=== PATIENT | male | born 1945 | race African-American/Black ===

== ENCOUNTER 2021-04-17 13:27 | Inpatient (IN) | payer MEDICARE, OTHER ==
[~2021-04-17] VITALS: Ht 180.3 cm; Wt 69.2 kg
[2021-04-17] MEDS ORDERED: IOHEXOL 350 MG/ML 75 ML VIAL ONE (13:58)
[2021-04-17 14:21] LABS: BASOPHILS % (AUTO) 1.4 % (0.0-2.0); EOSINOPHILS % (AUTO) 0.6 % (1.0-6.0); HEMATOCRIT 31.3 % (41-53); HEMOGLOBIN 10.1 g/dL (13.5-17.5); LYMPHOCYTES # (AUTO) 1.1 K/uL (1.0-4.8); LYMPHOCYTES % (AUTO) 20.2 % (22.0-44.0); MEAN CORPUSCULAR HEMOGLOBIN 31.7 pg (26.0-34.0); MEAN CORPUSCULAR HGB CONC 32.2 G/dL (31.0-37.0); MEAN CORPUSCULAR VOLUME 99 fL (80-100); MONOCYTES # (AUTO) 0.3 K/uL (0.1-1.0); MONOCYTES % (AUTO) 5.5 % (2.0-9.0); NEUTROPHILS # (AUTO) 3.8 K/uL (1.8-7.7); NEUTROPHILS % (AUTO) 72.3 % (40.0-70.0); PLATELET COUNT (AUTO) 437 K/uL (150-450); RED BLOOD CELL COUNT(AUTO) 3.17 MIL/uL (4.50-5.90)
[2021-04-17 14:22] LABS: INR 1.1 (0.9-1.1); PROTHROMBIN TIME 11.3 SEC (9.4-11.6)
[2021-04-17 14:23] LABS: CALCIUM, TOTAL 8.8 mg/dL (8.8-10.5); CREATININE 1.78 mg/dL (0.60-1.30); POTASSIUM 4.3 mmol/L (3.5-5.1)
[2021-04-17 14:29] LABS: ALBUMIN 2.8 g/dL (3.4-5.0); BILIRUBIN,TOTAL 0.3 mg/dL (0.1-1.0); TOTAL PROTEIN, SERUM 8.5 g/dL (6.4-8.2)
[2021-04-17 14:51] LABS: B-TYPE NATRIURETIC PEPTIDE 196 pg/mL (0-100)
[2021-04-17 14:57] LABS: COVID AG,FIA SOURCE NASOPHARYNGEAL
[2021-04-17] MEDS ORDERED: TICAGRELOR 90 MG TABLET PO ONE (15:15)
[2021-04-17 15:27] LABS: APPEARANCE,URINE CLEAR (CLEAR); BILIRUBIN,URINE NEGATIVE (NEGATIVE); GLUCOSE, URINE (UA) NEGATIVE (NEGATIVE); KETONES,URINE NEGATIVE (NEGATIVE); LEUKOCYTE ESTERASE ,URINE NEGATIVE (NEGATIVE); NITRATE,URINE NEGATIVE (NEGATIVE); OCCULT BLOOD,URINE SMALL (NEGATIVE); PROTEIN,URINE TRACE (NEGATIVE); UROBILINOGEN,URINE 0.2 mg/dL (<=1.0)
[2021-04-17 15:42] LABS: AMPHET/METH SCREEN,URINE NEGATIVE (NEGATIVE); BARBITURATE SCREEN, URINE NEGATIVE (NEGATIVE); BENZODIAZEPINES SCREEN,URINE NEGATIVE (NEGATIVE); CANNABINOID SCREEN,URINE NEGATIVE (NEGATIVE); COCAINE SCREEN,URINE NEGATIVE (NEGATIVE); METHADONE SCREEN, URINE NEGATIVE (NEGATIVE); OPIATE SCREEN,URINE NEGATIVE (NEGATIVE)
[2021-04-17 15:43] LABS: PHENCYCLIDINE SCREEN,URINE NEGATIVE (NEGATIVE)
[2021-04-17 15:54] LABS: BACTERIA,URINE Rare /HPF (None Seen); SQUAMOUS EPITHELIAL CELL,UR Rare /LPF (None Seen)
[2021-04-17] MEDS ORDERED: ACETAMINOPHEN 325 MG TABLET PO PRN (16:45)
[2021-04-17] MEDS ORDERED: ONDANSETRON HCL 4 MG/2 ML VIAL IVP PRN (16:45)
[2021-04-17] MEDS ORDERED: 0.9% SODIUM CHLORIDE 10 ML SYRINGE IVP PRN (16:45)
[2021-04-17 18:10] VITALS: BP 143/72
[2021-04-17 19:53] VITALS: BP 141/73
[2021-04-17 23:30] VITALS: BP 159/77
[2021-04-18 04:10] VITALS: BP 158/83
[2021-04-18] MEDS ORDERED: ACETAMINOPHEN 325 MG TABLET PO PRN (05:45)
[2021-04-18] MEDS ORDERED: ALBUTEROL SULFATE 2.5 MG/0.5 ML NEB SOLUTION NEB PRN (05:45)
[2021-04-18] MEDS ORDERED: HYDROCODONE/ACETAMINOPHEN 5-325 MG TABLET PO PRN (05:45)
[2021-04-18] MEDS ORDERED: IPRATROPIUM BROMIDE 0.5 MG/2.5 ML NEB SOLUTION NEB PRN (05:45)
[2021-04-18] MEDS ORDERED: DEXTROSE 50%-WATER 25 GM/50 ML SYRINGE IVP PRN (05:45)
[2021-04-18] MEDS ORDERED: BISACODYL 10 MG RECTAL RECTAL SUPPOSITORY PR PRN (05:45)
[2021-04-18] MEDS ORDERED: ONDANSETRON HCL 4 MG/2 ML VIAL IVP PRN (05:45)
[2021-04-18] MEDS ORDERED: ZOLPIDEM TARTRATE 5 MG TABLET PO PRN (05:45)
[2021-04-18] MEDS ORDERED: ATOR10TA84 PO (05:46)
[2021-04-18] MEDS ORDERED: CHL25 PO (05:46)
[2021-04-18] MEDS ORDERED: GABA-1181 PO (05:46)
[2021-04-18] MEDS ORDERED: CINA30 PO (05:46)
[2021-04-18] MEDS ORDERED: [UNRECOGNIZED DRUG - CODE] SQ (05:46)
[2021-04-18] MEDS ORDERED: HYDR2TAB37 PO ×2 (05:48)
[2021-04-18] MEDS ORDERED: PRED-409 PO (05:49)
[2021-04-18] MEDS ORDERED: SERT-158 PO (05:50)
[2021-04-18] MEDS ORDERED: CARAL PO (05:51)
[2021-04-18] MEDS ORDERED: INSLAN SQ (05:52)
[2021-04-18] MEDS ORDERED: MULT-264 PO (05:54)
[2021-04-18] MEDS ORDERED: NIFE-64 PO (05:55)
[2021-04-18] MEDS ORDERED: MELA5TAB40 PO (05:55)
[2021-04-18] MEDS ORDERED: PANT-31 PO (05:56)
[2021-04-18] MEDS ORDERED: NYST100033 PO (05:57)
[2021-04-18] MEDS ORDERED: FOLI-130 PO (06:01)
[2021-04-18] MEDS ORDERED: DEXT30DR5 OU (06:03)
[2021-04-18] MEDS ORDERED: TAMS-13 PO (06:06)
[2021-04-18] MEDS ORDERED: TACR5CAP21 PO (06:06)
[2021-04-18 06:38] LABS: GLUCOMETER DEV NAME(LOC) 5N.3; GLUCOSE,POINT OF CARE 88 MG/DL (70-110)
[2021-04-18 07:19] LABS: EOSINOPHILS % (AUTO) 0.5 % (1.0-6.0); HEMATOCRIT 29.1 % (41-53); HEMOGLOBIN 9.3 g/dL (13.5-17.5); LYMPHOCYTES % (AUTO) 32.4 % (22.0-44.0); MEAN CORPUSCULAR HEMOGLOBIN 31.9 pg (26.0-34.0); MEAN CORPUSCULAR HGB CONC 32.1 G/dL (31.0-37.0); MEAN CORPUSCULAR VOLUME 100 fL (80-100); MONOCYTES # (AUTO) 0.4 K/uL (0.1-1.0); MONOCYTES % (AUTO) 6.8 % (2.0-9.0); NEUTROPHILS # (AUTO) 3.6 K/uL (1.8-7.7); NEUTROPHILS % (AUTO) 59.3 % (40.0-70.0); PLATELET COUNT (AUTO) 441 K/uL (150-450); RED BLOOD CELL COUNT(AUTO) 2.93 MIL/uL (4.50-5.90); RED CELL DISTRIBUTION WIDTH 19.2 % (11.5-14.5)
[2021-04-18 07:33] VITALS: BP 171/82
[2021-04-18 07:58] LABS: ALBUMIN 2.6 g/dL (3.4-5.0); BILIRUBIN,TOTAL 0.4 mg/dL (0.1-1.0); CALCIUM, TOTAL 8.6 mg/dL (8.8-10.5); CREATININE 1.88 mg/dL (0.60-1.30); POTASSIUM 4.5 mmol/L (3.5-5.1); THYROID STIMULATING HORMONE 2.05 uIU/mL (0.36-3.74)
[2021-04-18] MEDS ORDERED: HYDROmorphone HCL 2 MG TABLET PO PRN (08:15)
[2021-04-18] MEDS: HYDROmorphone HCL 2 MG TABLET PO SCH ×2 (08:15→20:15)
[2021-04-18] MEDS: INSULIN GLARGINE,HUM.REC.ANLOG 100 UNITS/ML SQ SCH (09:00)
[2021-04-18] MEDS: HEPARIN SODIUM,PORCINE 5,000 UNITS/ML VIAL SQ SCH ×2 (10:33→17:15)
[2021-04-18] MEDS: TACROLIMUS 5 MG CAPSULE PO SCH ×3 (10:34→22:15)
[2021-04-18] MEDS: NIFEdipine 60 MG ER TABLET PO SCH ×3 (10:34→22:16)
[2021-04-18] MEDS: SUCRALFATE 1 GM/10 ML SUSPENSION UDCUP PO SCH ×5 (10:34→22:15)
[2021-04-18] MEDS: CHLORTHALIDONE 25 MG TABLET PO SCH (10:34)
[2021-04-18] MEDS: PANTOPRAZOLE SODIUM 40 MG DR TABLET PO SCH ×3 (10:35→22:16)
[2021-04-18] MEDS: PredniSONE 5 MG TABLET PO SCH (10:35)
[2021-04-18] MEDS: NYSTATIN 500,000 UNITS/5 ML SUSPENSION UDCUP PO SCH ×5 (10:35→22:15)
[2021-04-18] MEDS: GABAPENTIN 300 MG CAPSULE PO SCH ×4 (10:36→22:15)
[2021-04-18] MEDS: SERTRALINE HCL 50 MG TABLET PO SCH (10:36)
[2021-04-18] MEDS: FOLIC ACID 1 MG TABLET PO SCH (10:36)
[2021-04-18] MEDS: MULTIVITAMINS, THERAPEUTIC TABLET PO SCH (10:37)
[2021-04-18] MEDS: DEXTRAN 70 0.1%/HYPROMELL 0.3% 0.9 ML OPHTHALMIC SOLUTION [PF] OU SCH ×4 (10:49→22:16)
[2021-04-18 11:07] VITALS: BP 165/83
[2021-04-18 16:25] VITALS: BP 130/71
[2021-04-18 16:39] LABS: GLUCOMETER DEV NAME(LOC) 5S.1; GLUCOSE,POINT OF CARE 74 MG/DL (70-110)
[2021-04-18 16:40] LABS: GLUCOMETER DEV NAME(LOC) 5S.1; GLUCOSE,POINT OF CARE 113 MG/DL (70-110)
[2021-04-18 17:14] LABS: GLUCOMETER DEV NAME(LOC) 5N.1C; GLUCOSE,POINT OF CARE 107 MG/DL (70-110)
[2021-04-18] MEDS: CINACALCET HCL 30 MG TABLET PO SCH (17:26)
[2021-04-18 19:22] VITALS: BP 145/80
[2021-04-18] MEDS: ATORVASTATIN CALCIUM 10 MG TABLET PO SCH ×2 (21:00→22:16)
[2021-04-18] MEDS: MELATONIN 5 MG TABLET PO SCH ×2 (21:00→22:15)
[2021-04-18] MEDS: TAMSULOSIN HCL 0.4 MG CAPSULE PO SCH ×2 (21:00→22:15)
[2021-04-18] MEDS: TICAGRELOR 90 MG TABLET PO SCH ×2 (21:15→22:15)
[2021-04-19] VITALS (7 sets, daily range): BP systolic 120–155; BP diastolic 69–81
[2021-04-19] MEDS: LORazepam 2 MG/ML VIAL IVP PRN ×2 (00:37→15:40)
[2021-04-19] MEDS: HEPARIN SODIUM,PORCINE 5,000 UNITS/ML VIAL SQ SCH ×2 (00:40→08:37)
[2021-04-19 06:42] LABS: BASOPHILS % (AUTO) 0.8 % (0.0-2.0); EOSINOPHILS % (AUTO) 1.1 % (1.0-6.0); HEMATOCRIT 28.3 % (41-53); HEMOGLOBIN 9.2 g/dL (13.5-17.5); LYMPHOCYTES # (AUTO) 1.1 K/uL (1.0-4.8); LYMPHOCYTES % (AUTO) 24.2 % (22.0-44.0); MEAN CORPUSCULAR HEMOGLOBIN 32.1 pg (26.0-34.0); MEAN CORPUSCULAR HGB CONC 32.6 G/dL (31.0-37.0); MEAN CORPUSCULAR VOLUME 98 fL (80-100); MONOCYTES # (AUTO) 0.4 K/uL (0.1-1.0); MONOCYTES % (AUTO) 7.8 % (2.0-9.0); NEUTROPHILS # (AUTO) 3.1 K/uL (1.8-7.7); NEUTROPHILS % (AUTO) 66.1 % (40.0-70.0); PLATELET COUNT (AUTO) 396 K/uL (150-450); RED BLOOD CELL COUNT(AUTO) 2.88 MIL/uL (4.50-5.90); RED CELL DISTRIBUTION WIDTH 18.9 % (11.5-14.5)
[2021-04-19 07:02] LABS: ALBUMIN 2.5 g/dL (3.4-5.0); BILIRUBIN,TOTAL 0.3 mg/dL (0.1-1.0); CALCIUM, TOTAL 8.9 mg/dL (8.8-10.5); CHOL/HDL RATIO 2.6 (4.2-7.3); CREATININE 1.77 mg/dL (0.60-1.30); MAGNESIUM 1.8 mg/dL (1.80-2.40); PHOSPHORUS 3.1 mg/dL (2.5-4.9); POTASSIUM 4.4 mmol/L (3.5-5.1); TOTAL PROTEIN, SERUM 7.8 g/dL (6.4-8.2)
[2021-04-19 07:56] LABS: GLUCOMETER DEV NAME(LOC) 5N.1C; GLUCOSE,POINT OF CARE 95 MG/DL (70-110)
[2021-04-19] MEDS: HYDROmorphone HCL 2 MG TABLET PO SCH (08:36)
[2021-04-19] MEDS: FOLIC ACID 1 MG TABLET PO SCH (08:38)
[2021-04-19] MEDS: CINACALCET HCL 30 MG TABLET PO SCH ×2 (08:38→18:00)
[2021-04-19] MEDS: PredniSONE 5 MG TABLET PO SCH (08:38)
[2021-04-19] MEDS: DEXTRAN 70 0.1%/HYPROMELL 0.3% 0.9 ML OPHTHALMIC SOLUTION [PF] OU SCH ×4 (08:38→20:52)
[2021-04-19] MEDS: TICAGRELOR 90 MG TABLET PO SCH ×2 (08:38→20:44)
[2021-04-19] MEDS: NIFEdipine 60 MG ER TABLET PO SCH ×2 (08:39→20:44)
[2021-04-19] MEDS: MULTIVITAMINS, THERAPEUTIC TABLET PO SCH (08:39)
[2021-04-19] MEDS: CHLORTHALIDONE 25 MG TABLET PO SCH (08:39)
[2021-04-19] MEDS: PANTOPRAZOLE SODIUM 40 MG DR TABLET PO SCH ×2 (08:39→20:45)
[2021-04-19] MEDS: SUCRALFATE 1 GM/10 ML SUSPENSION UDCUP PO SCH ×4 (08:40→20:48)
[2021-04-19] MEDS: GABAPENTIN 300 MG CAPSULE PO SCH ×3 (08:40→20:45)
[2021-04-19] MEDS: TACROLIMUS 5 MG CAPSULE PO SCH ×2 (08:40→20:44)
[2021-04-19] MEDS: NYSTATIN 500,000 UNITS/5 ML SUSPENSION UDCUP PO SCH ×4 (08:40→20:48)
[2021-04-19] MEDS: SERTRALINE HCL 50 MG TABLET PO SCH (08:40)
[2021-04-19] MEDS: INSULIN GLARGINE,HUM.REC.ANLOG 100 UNITS/ML SQ SCH (09:02)
[2021-04-19 18:00] LABS: GLUCOMETER DEV NAME(LOC) 5N.1C; GLUCOSE,POINT OF CARE 100 MG/DL (70-110)
[2021-04-19 18:00] LABS: GLUCOMETER DEV NAME(LOC) 5N.1C; GLUCOSE,POINT OF CARE 113 MG/DL (70-110)
[2021-04-19 18:53] LABS: GLUCOMETER DEV NAME(LOC) 5S.1; GLUCOSE,POINT OF CARE 129 MG/DL (70-110)
[2021-04-19 18:54] LABS: GLUCOMETER DEV NAME(LOC) 5S.1; GLUCOSE,POINT OF CARE 161 MG/DL (70-110)
[2021-04-19] MEDS: ATORVASTATIN CALCIUM 40 MG TABLET PO SCH (20:44)
[2021-04-19] MEDS: MELATONIN 5 MG TABLET PO SCH (20:45)
[2021-04-19] MEDS: TAMSULOSIN HCL 0.4 MG CAPSULE PO SCH (20:48)
[2021-04-19] MEDS: MORPHINE SULFATE 2 MG/ML SYRINGE IVP PRN (21:00)
[2021-04-20 04:16] VITALS: BP 138/69
[2021-04-20 06:42] LABS: GLUCOMETER DEV NAME(LOC) 5S.1; GLUCOSE,POINT OF CARE 128 MG/DL (70-110)
[2021-04-20 07:18] VITALS: BP 149/81
[2021-04-20] MEDS: TICAGRELOR 90 MG TABLET PO SCH ×2 (08:08→20:45)
[2021-04-20] MEDS: DEXTRAN 70 0.1%/HYPROMELL 0.3% 0.9 ML OPHTHALMIC SOLUTION [PF] OU SCH ×4 (08:08→20:45)
[2021-04-20] MEDS: CINACALCET HCL 30 MG TABLET PO SCH ×2 (08:08→18:02)
[2021-04-20] MEDS: PredniSONE 5 MG TABLET PO SCH (08:09)
[2021-04-20] MEDS: MULTIVITAMINS, THERAPEUTIC TABLET PO SCH (08:09)
[2021-04-20] MEDS: SERTRALINE HCL 50 MG TABLET PO SCH (08:09)
[2021-04-20] MEDS: NIFEdipine 60 MG ER TABLET PO SCH ×2 (08:10→20:45)
[2021-04-20] MEDS: CHLORTHALIDONE 25 MG TABLET PO SCH (08:10)
[2021-04-20] MEDS: FOLIC ACID 1 MG TABLET PO SCH (08:10)
[2021-04-20] MEDS: PANTOPRAZOLE SODIUM 40 MG DR TABLET PO SCH ×2 (08:11→20:45)
[2021-04-20] MEDS: GABAPENTIN 300 MG CAPSULE PO SCH ×3 (08:11→20:45)
[2021-04-20] MEDS: TACROLIMUS 5 MG CAPSULE PO SCH ×2 (08:11→20:45)
[2021-04-20] MEDS: NYSTATIN 500,000 UNITS/5 ML SUSPENSION UDCUP PO SCH ×4 (08:12→20:49)
[2021-04-20] MEDS: SUCRALFATE 1 GM/10 ML SUSPENSION UDCUP PO SCH ×4 (08:12→20:49)
[2021-04-20] MEDS ORDERED: CLOPIDOGREL BISULFATE 75 MG TABLET PO SCH (09:00)
[2021-04-20] MEDS ORDERED: ASPIRIN 81 MG CHEWABLE TABLET PO SCH (09:00)
[2021-04-20] MEDS: INSULIN GLARGINE,HUM.REC.ANLOG 100 UNITS/ML SQ SCH (09:05)
[2021-04-20 10:49] VITALS: BP 151/81
[2021-04-20] MEDS ORDERED: NIFE60TA81 PO (14:40)
[2021-04-20] MEDS ORDERED: *CLINICAL-CEFEPIME DOSING CLINICAL ONE (14:45)
[2021-04-20 15:05] LABS: BASOPHILS % (AUTO) 0.6 % (0.0-2.0); EOSINOPHILS % (AUTO) 0.6 % (1.0-6.0); HEMATOCRIT 28.4 % (41-53); LYMPHOCYTES # (AUTO) 1.4 K/uL (1.0-4.8); LYMPHOCYTES % (AUTO) 31.2 % (22.0-44.0); MEAN CORPUSCULAR HEMOGLOBIN 32.1 pg (26.0-34.0); MEAN CORPUSCULAR HGB CONC 31.9 G/dL (31.0-37.0); MEAN CORPUSCULAR VOLUME 101 fL (80-100); MONOCYTES # (AUTO) 0.2 K/uL (0.1-1.0); MONOCYTES % (AUTO) 4.7 % (2.0-9.0); NEUTROPHILS # (AUTO) 2.9 K/uL (1.8-7.7); NEUTROPHILS % (AUTO) 62.9 % (40.0-70.0); PLATELET COUNT (AUTO) 487 K/uL (150-450); RED BLOOD CELL COUNT(AUTO) 2.82 MIL/uL (4.50-5.90); RED CELL DISTRIBUTION WIDTH 19.6 % (11.5-14.5)
[2021-04-20 15:15] VITALS: BP 133/70
[2021-04-20 15:34] LABS: ALBUMIN 2.8 g/dL (3.4-5.0); BILIRUBIN,TOTAL 0.5 mg/dL (0.1-1.0); CALCIUM, TOTAL 9.4 mg/dL (8.8-10.5); CREATININE 1.99 mg/dL (0.60-1.30); PHOSPHORUS 3.9 mg/dL (2.5-4.9); POTASSIUM 5.4 mmol/L (3.5-5.1); TOTAL PROTEIN, SERUM 8.5 g/dL (6.4-8.2)
[2021-04-20] MEDS ORDERED: CEFEPIME HCL 2 GM in DEXTROSE 5%-WATER 50 ML IV ONE (16:00)
[2021-04-20] MEDS ORDERED: SODIUM CHLORIDE 0.9% 250 ML IV ONE (16:29)
[2021-04-20] MEDS ORDERED: VANCOMYCIN HCL 1 GM/D5% WATER 200 ML IV ONE (17:00)
[2021-04-20 17:16] LABS: GLUCOMETER DEV NAME(LOC) 5N.1C; GLUCOSE,POINT OF CARE 105 MG/DL (70-110)
[2021-04-20 17:16] LABS: GLUCOMETER DEV NAME(LOC) 5S.1; GLUCOSE,POINT OF CARE 95 MG/DL (70-110)
[2021-04-20 19:15] VITALS: BP 143/78
[2021-04-20] MEDS: MELATONIN 5 MG TABLET PO SCH (20:45)
[2021-04-20] MEDS: ATORVASTATIN CALCIUM 40 MG TABLET PO SCH (20:45)
[2021-04-20] MEDS: TAMSULOSIN HCL 0.4 MG CAPSULE PO SCH (20:50)
[2021-04-20 21:39] LABS: GLUCOMETER DEV NAME(LOC) 5N.1C; GLUCOSE,POINT OF CARE 107 MG/DL (70-110)
[2021-04-20 23:22] VITALS: BP 115/69
[2021-04-21 04:07] VITALS: BP 129/74
[2021-04-21 06:37] LABS: GLUCOMETER DEV NAME(LOC) 5N.3; GLUCOSE,POINT OF CARE 116 MG/DL (70-110)
[2021-04-21 06:37] LABS: GLUCOMETER DEV NAME(LOC) 5N.3; GLUCOSE,POINT OF CARE 96 MG/DL (70-110)
[2021-04-21 06:38] LABS: GLUCOMETER DEV NAME(LOC) 5N.3; GLUCOSE,POINT OF CARE 73 MG/DL (70-110)
[2021-04-21 07:00] LABS: BASOPHILS % (AUTO) 1.4 % (0.0-2.0); EOSINOPHILS % (AUTO) 2.6 % (1.0-6.0); HEMATOCRIT 26.9 % (41-53); HEMOGLOBIN 9.1 g/dL (13.5-17.5); LYMPHOCYTES % (AUTO) 22.9 % (22.0-44.0); MEAN CORPUSCULAR HEMOGLOBIN 33.6 pg (26.0-34.0); MEAN CORPUSCULAR HGB CONC 33.8 G/dL (31.0-37.0); MEAN CORPUSCULAR VOLUME 99 fL (80-100); MONOCYTES # (AUTO) 0.7 K/uL (0.1-1.0); MONOCYTES % (AUTO) 17.2 % (2.0-9.0); NEUTROPHILS # (AUTO) 2.4 K/uL (1.8-7.7); NEUTROPHILS % (AUTO) 55.9 % (40.0-70.0); PLATELET COUNT (AUTO) 414 K/uL (150-450); RED BLOOD CELL COUNT(AUTO) 2.71 MIL/uL (4.50-5.90); RED CELL DISTRIBUTION WIDTH 19.5 % (11.5-14.5)
[2021-04-21 07:32] LABS: ALBUMIN 2.5 g/dL (3.4-5.0); BILIRUBIN,TOTAL 0.4 mg/dL (0.1-1.0); CALCIUM, TOTAL 8.8 mg/dL (8.8-10.5); CREATININE 1.95 mg/dL (0.60-1.30); POTASSIUM 4.5 mmol/L (3.5-5.1); TOTAL PROTEIN, SERUM 7.8 g/dL (6.4-8.2)
[2021-04-21] MEDS ORDERED: VANCOMYCIN HCL 750 MG in DEXTROSE 5%-WATER 250 ML IV SCH (08:00)
[2021-04-21 08:42] VITALS: BP 116/63
[2021-04-21] MEDS: SUCRALFATE 1 GM/10 ML SUSPENSION UDCUP PO SCH ×4 (08:57→21:24)
[2021-04-21] MEDS: NYSTATIN 500,000 UNITS/5 ML SUSPENSION UDCUP PO SCH ×4 (08:57→21:25)
[2021-04-21] MEDS: TICAGRELOR 90 MG TABLET PO SCH ×2 (08:58→21:25)
[2021-04-21] MEDS: NIFEdipine 60 MG ER TABLET PO SCH ×2 (08:58→21:00)
[2021-04-21] MEDS: TACROLIMUS 5 MG CAPSULE PO SCH ×2 (08:58→21:25)
[2021-04-21] MEDS: CHLORTHALIDONE 25 MG TABLET PO SCH (08:59)
[2021-04-21] MEDS: MULTIVITAMINS, THERAPEUTIC TABLET PO SCH (08:59)
[2021-04-21] MEDS: PANTOPRAZOLE SODIUM 40 MG DR TABLET PO SCH ×2 (08:59→21:25)
[2021-04-21] MEDS: PredniSONE 5 MG TABLET PO SCH (08:59)
[2021-04-21] MEDS: SERTRALINE HCL 50 MG TABLET PO SCH (08:59)
[2021-04-21] MEDS: DEXTRAN 70 0.1%/HYPROMELL 0.3% 0.9 ML OPHTHALMIC SOLUTION [PF] OU SCH ×4 (08:59→21:24)
[2021-04-21] MEDS: CINACALCET HCL 30 MG TABLET PO SCH ×2 (08:59→17:17)
[2021-04-21] MEDS: INSULIN GLARGINE,HUM.REC.ANLOG 100 UNITS/ML SQ SCH (09:00)
[2021-04-21] MEDS: FOLIC ACID 1 MG TABLET PO SCH (09:17)
[2021-04-21] MEDS: GABAPENTIN 300 MG CAPSULE PO SCH ×3 (09:17→21:26)
[2021-04-21] MEDS: MORPHINE SULFATE 2 MG/ML SYRINGE IVP PRN ×2 (09:26→23:27)
[2021-04-21 11:25] VITALS: BP 128/68
[2021-04-21] MEDS: INSULIN LISPRO 100 UNITS/ML SQ PRN ×2 (12:14→21:27)
[2021-04-21] MEDS ORDERED: CEFEPIME HCL 1 GM in DEXTROSE 5%-WATER 50 ML IV SCH (16:00)
[2021-04-21 16:20] VITALS: BP 118/68
[2021-04-21 18:17] LABS: GLUCOMETER DEV NAME(LOC) 5N.3; GLUCOSE,POINT OF CARE 174 MG/DL (70-110)
[2021-04-21 19:24] VITALS: BP 108/51
[2021-04-21] MEDS: TAMSULOSIN HCL 0.4 MG CAPSULE PO SCH (21:25)
[2021-04-21] MEDS: ATORVASTATIN CALCIUM 40 MG TABLET PO SCH (21:25)
[2021-04-21] MEDS: MELATONIN 5 MG TABLET PO SCH (21:26)
[2021-04-22] VITALS (7 sets, daily range): BP systolic 100–157; BP diastolic 57–83
[2021-04-22 00:11] LABS: GLUCOMETER DEV NAME(LOC) 5S.1; GLUCOSE,POINT OF CARE 146 MG/DL (70-110)
[2021-04-22 00:13] LABS: GLUCOMETER DEV NAME(LOC) 5N.1C; GLUCOSE,POINT OF CARE 137 MG/DL (70-110)
[2021-04-22 06:41] LABS: BASOPHILS % (AUTO) 1.3 % (0.0-2.0); EOSINOPHILS % (AUTO) 1.7 % (1.0-6.0); HEMATOCRIT 28.8 % (41-53); HEMOGLOBIN 9.5 g/dL (13.5-17.5); LYMPHOCYTES # (AUTO) 1.6 K/uL (1.0-4.8); MEAN CORPUSCULAR HEMOGLOBIN 33.1 pg (26.0-34.0); MEAN CORPUSCULAR HGB CONC 32.9 G/dL (31.0-37.0); MEAN CORPUSCULAR VOLUME 101 fL (80-100); MONOCYTES # (AUTO) 0.7 K/uL (0.1-1.0); MONOCYTES % (AUTO) 14.9 % (2.0-9.0); NEUTROPHILS # (AUTO) 2.5 K/uL (1.8-7.7); NEUTROPHILS % (AUTO) 49.1 % (40.0-70.0); PLATELET COUNT (AUTO) 409 K/uL (150-450); RED BLOOD CELL COUNT(AUTO) 2.86 MIL/uL (4.50-5.90); RED CELL DISTRIBUTION WIDTH 19.3 % (11.5-14.5)
[2021-04-22 07:32] LABS: ALBUMIN 2.5 g/dL (3.4-5.0); BILIRUBIN,TOTAL 0.2 mg/dL (0.1-1.0); CALCIUM, TOTAL 8.7 mg/dL (8.8-10.5); CREATININE 2.16 mg/dL (0.60-1.30); POTASSIUM 4.8 mmol/L (3.5-5.1); TOTAL PROTEIN, SERUM 7.9 g/dL (6.4-8.2)
[2021-04-22] MEDS: GABAPENTIN 300 MG CAPSULE PO SCH ×3 (08:43→20:17)
[2021-04-22] MEDS: SUCRALFATE 1 GM/10 ML SUSPENSION UDCUP PO SCH ×4 (08:43→20:16)
[2021-04-22] MEDS: DEXTRAN 70 0.1%/HYPROMELL 0.3% 0.9 ML OPHTHALMIC SOLUTION [PF] OU SCH ×4 (08:43→20:16)
[2021-04-22] MEDS: NYSTATIN 500,000 UNITS/5 ML SUSPENSION UDCUP PO SCH ×4 (08:43→20:17)
[2021-04-22] MEDS: NIFEdipine 60 MG ER TABLET PO SCH ×2 (08:44→20:32)
[2021-04-22] MEDS: FOLIC ACID 1 MG TABLET PO SCH (08:44)
[2021-04-22] MEDS: PredniSONE 5 MG TABLET PO SCH (08:44)
[2021-04-22] MEDS: PANTOPRAZOLE SODIUM 40 MG DR TABLET PO SCH ×2 (08:44→20:17)
[2021-04-22] MEDS: SERTRALINE HCL 50 MG TABLET PO SCH (08:44)
[2021-04-22] MEDS: MULTIVITAMINS, THERAPEUTIC TABLET PO SCH (08:44)
[2021-04-22] MEDS: TICAGRELOR 90 MG TABLET PO SCH ×2 (08:45→20:16)
[2021-04-22] MEDS: CHLORTHALIDONE 25 MG TABLET PO SCH (08:45)
[2021-04-22] MEDS: TACROLIMUS 5 MG CAPSULE PO SCH ×2 (08:49→20:17)
[2021-04-22] MEDS: CINACALCET HCL 30 MG TABLET PO SCH ×2 (08:49→17:58)
[2021-04-22] MEDS: INSULIN GLARGINE,HUM.REC.ANLOG 100 UNITS/ML SQ SCH (09:03)
[2021-04-22 09:31] LABS: GLUCOMETER DEV NAME(LOC) 5N.1C; GLUCOSE,POINT OF CARE 116 MG/DL (70-110)
[2021-04-22] MEDS: INSULIN LISPRO 100 UNITS/ML SQ PRN ×2 (11:29→20:21)
[2021-04-22] MEDS: MORPHINE SULFATE 2 MG/ML SYRINGE IVP PRN (15:34)
[2021-04-22] MEDS: TAMSULOSIN HCL 0.4 MG CAPSULE PO SCH (20:16)
[2021-04-22] MEDS: ATORVASTATIN CALCIUM 40 MG TABLET PO SCH (20:17)
[2021-04-22] MEDS: MELATONIN 5 MG TABLET PO SCH (20:17)
[2021-04-22] MEDS ORDERED: *CLINICAL-MEROPENEM DOSING CLINICAL ONE (21:15)
[2021-04-22] MEDS ORDERED: *CLINICAL-RX DOSING [ENTER DRUG IN COMMENTS] CLINICAL ONE (21:45)
[2021-04-22 21:53] LABS: GLUCOMETER DEV NAME(LOC) 5S.1; GLUCOSE,POINT OF CARE 167 MG/DL (70-110)
[2021-04-22 21:53] LABS: GLUCOMETER DEV NAME(LOC) 5N.3; GLUCOSE,POINT OF CARE 153 MG/DL (70-110)
[2021-04-22 21:53] LABS: GLUCOMETER DEV NAME(LOC) 5S.1; GLUCOSE,POINT OF CARE 126 MG/DL (70-110)
[2021-04-22] MEDS: MEROPENEM 1 GM in SODIUM CHLORIDE 0.9% 100 ML IV SCH (22:27)
[2021-04-22] MEDS ORDERED: SODIUM CHLORIDE 0.9% IV SCH (23:00)
[2021-04-22] MEDS ORDERED: DAPTOMYCIN IV SCH (23:00)
[2021-04-23 04:00] VITALS: BP 99/56
[2021-04-23 05:43] LABS: BASOPHILS % (AUTO) 4.3 % (0.0-2.0); EOSINOPHILS % (AUTO) 1.5 % (1.0-6.0); HEMATOCRIT 27.1 % (41-53); LYMPHOCYTES # (AUTO) 1.2 K/uL (1.0-4.8); LYMPHOCYTES % (AUTO) 29.4 % (22.0-44.0); MEAN CORPUSCULAR HEMOGLOBIN 33.3 pg (26.0-34.0); MEAN CORPUSCULAR HGB CONC 33.1 G/dL (31.0-37.0); MEAN CORPUSCULAR VOLUME 101 fL (80-100); MONOCYTES # (AUTO) 0.7 K/uL (0.1-1.0); MONOCYTES % (AUTO) 16.3 % (2.0-9.0); NEUTROPHILS % (AUTO) 48.5 % (40.0-70.0); PLATELET COUNT (AUTO) 375 K/uL (150-450); RED CELL DISTRIBUTION WIDTH 19.3 % (11.5-14.5)
[2021-04-23] MEDS: MORPHINE SULFATE 2 MG/ML SYRINGE IVP PRN (06:45)
[2021-04-23 06:46] LABS: ALBUMIN 2.4 g/dL (3.4-5.0); BILIRUBIN,TOTAL 0.3 mg/dL (0.1-1.0); CALCIUM, TOTAL 8.7 mg/dL (8.8-10.5); CREATININE 2.51 mg/dL (0.60-1.30); MAGNESIUM 1.9 mg/dL (1.80-2.40); PHOSPHORUS 3.5 mg/dL (2.5-4.9); POTASSIUM 4.6 mmol/L (3.5-5.1); TOTAL PROTEIN, SERUM 7.6 g/dL (6.4-8.2)
[2021-04-23 08:10] VITALS: BP 132/62
[2021-04-23] MEDS: TICAGRELOR 90 MG TABLET PO SCH ×2 (08:11→21:06)
[2021-04-23] MEDS: MULTIVITAMINS, THERAPEUTIC TABLET PO SCH (08:11)
[2021-04-23] MEDS: PANTOPRAZOLE SODIUM 40 MG DR TABLET PO SCH ×2 (08:11→21:08)
[2021-04-23] MEDS: GABAPENTIN 300 MG CAPSULE PO SCH ×3 (08:11→21:06)
[2021-04-23] MEDS: TACROLIMUS 5 MG CAPSULE PO SCH ×2 (08:12→21:06)
[2021-04-23] MEDS: PredniSONE 5 MG TABLET PO SCH (08:12)
[2021-04-23] MEDS: FOLIC ACID 1 MG TABLET PO SCH (08:12)
[2021-04-23] MEDS: CHLORTHALIDONE 25 MG TABLET PO SCH (08:12)
[2021-04-23] MEDS: CINACALCET HCL 30 MG TABLET PO SCH ×2 (08:13→17:04)
[2021-04-23] MEDS: SERTRALINE HCL 50 MG TABLET PO SCH (08:13)
[2021-04-23] MEDS: NIFEdipine 60 MG ER TABLET PO SCH ×2 (08:14→21:06)
[2021-04-23] MEDS: SUCRALFATE 1 GM/10 ML SUSPENSION UDCUP PO SCH ×4 (08:14→21:08)
[2021-04-23] MEDS: NYSTATIN 500,000 UNITS/5 ML SUSPENSION UDCUP PO SCH ×4 (08:15→21:06)
[2021-04-23] MEDS: DEXTRAN 70 0.1%/HYPROMELL 0.3% 0.9 ML OPHTHALMIC SOLUTION [PF] OU SCH ×4 (08:30→21:06)
[2021-04-23] MEDS: INSULIN GLARGINE,HUM.REC.ANLOG 100 UNITS/ML SQ SCH (10:23)
[2021-04-23] MEDS: MEROPENEM 1 GM in SODIUM CHLORIDE 0.9% 100 ML IV SCH ×2 (10:29→21:56)
[2021-04-23 12:04] VITALS: BP 136/71
[2021-04-23 12:04] LABS: GLUCOMETER DEV NAME(LOC) 5S.1; GLUCOSE,POINT OF CARE 103 MG/DL (70-110)
[2021-04-23] MEDS: METOPROLOL SUCCINATE 25 MG ER TABLET PO SCH (13:06)
[2021-04-23 15:30] VITALS: BP 147/69
[2021-04-23] MEDS: INSULIN LISPRO 100 UNITS/ML SQ PRN (17:09)
[2021-04-23 20:14] VITALS: BP 127/68
[2021-04-23] MEDS: MELATONIN 5 MG TABLET PO SCH (21:06)
[2021-04-23] MEDS: ATORVASTATIN CALCIUM 40 MG TABLET PO SCH (21:06)
[2021-04-23] MEDS: TAMSULOSIN HCL 0.4 MG CAPSULE PO SCH (21:06)
[2021-04-23 21:20] LABS: GLUCOMETER DEV NAME(LOC) 5N.3; GLUCOSE,POINT OF CARE 111 MG/DL (70-110)
[2021-04-23 21:20] LABS: GLUCOMETER DEV NAME(LOC) 5N.3; GLUCOSE,POINT OF CARE 170 MG/DL (70-110)
[2021-04-23 21:26] LABS: GLUCOMETER DEV NAME(LOC) 5N.1C; GLUCOSE,POINT OF CARE 124 MG/DL (70-110)
[2021-04-23 23:09] VITALS: BP 116/67
[2021-04-24 05:22] VITALS: BP 138/59
[2021-04-24 05:38] LABS: EOSINOPHILS % (AUTO) 1.4 % (1.0-6.0); HEMOGLOBIN 9.2 g/dL (13.5-17.5); LYMPHOCYTES # (AUTO) 1.3 K/uL (1.0-4.8); LYMPHOCYTES % (AUTO) 31.3 % (22.0-44.0); MEAN CORPUSCULAR HEMOGLOBIN 33.4 pg (26.0-34.0); MEAN CORPUSCULAR HGB CONC 32.9 G/dL (31.0-37.0); MEAN CORPUSCULAR VOLUME 102 fL (80-100); MONOCYTES # (AUTO) 0.7 K/uL (0.1-1.0); MONOCYTES % (AUTO) 16.8 % (2.0-9.0); NEUTROPHILS % (AUTO) 48.5 % (40.0-70.0); PLATELET COUNT (AUTO) 373 K/uL (150-450); RED BLOOD CELL COUNT(AUTO) 2.75 MIL/uL (4.50-5.90); RED CELL DISTRIBUTION WIDTH 19.3 % (11.5-14.5)
[2021-04-24 06:01] LABS: GLUCOMETER DEV NAME(LOC) 5S.1; GLUCOSE,POINT OF CARE 102 MG/DL (70-110)
[2021-04-24 06:59] LABS: ALBUMIN 2.4 g/dL (3.4-5.0); BILIRUBIN,TOTAL 0.2 mg/dL (0.1-1.0); CREATININE 2.51 mg/dL (0.60-1.30); MAGNESIUM 2.1 mg/dL (1.80-2.40); PHOSPHORUS 3.7 mg/dL (2.5-4.9); POTASSIUM 5.9 mmol/L (3.5-5.1); TOTAL PROTEIN, SERUM 7.7 g/dL (6.4-8.2)
[2021-04-24 07:19] VITALS: BP 136/69
[2021-04-24] MEDS: TACROLIMUS 5 MG CAPSULE PO SCH (09:00)
[2021-04-24] MEDS: GABAPENTIN 300 MG CAPSULE PO SCH ×3 (09:20→20:38)
[2021-04-24] MEDS: CHLORTHALIDONE 25 MG TABLET PO SCH (09:21)
[2021-04-24] MEDS: MULTIVITAMINS, THERAPEUTIC TABLET PO SCH (09:21)
[2021-04-24] MEDS: PredniSONE 5 MG TABLET PO SCH (09:21)
[2021-04-24] MEDS: SERTRALINE HCL 50 MG TABLET PO SCH (09:22)
[2021-04-24] MEDS: FOLIC ACID 1 MG TABLET PO SCH (09:22)
[2021-04-24] MEDS: METOPROLOL SUCCINATE 25 MG ER TABLET PO SCH (09:22)
[2021-04-24] MEDS: SUCRALFATE 1 GM/10 ML SUSPENSION UDCUP PO SCH ×4 (09:23→20:38)
[2021-04-24] MEDS: NYSTATIN 500,000 UNITS/5 ML SUSPENSION UDCUP PO SCH ×4 (09:23→20:38)
[2021-04-24] MEDS: NIFEdipine 60 MG ER TABLET PO SCH ×2 (09:26→20:37)
[2021-04-24] MEDS: TICAGRELOR 90 MG TABLET PO SCH ×2 (09:28→20:38)
[2021-04-24] MEDS: CINACALCET HCL 30 MG TABLET PO SCH ×2 (09:28→18:35)
[2021-04-24] MEDS: DEXTRAN 70 0.1%/HYPROMELL 0.3% 0.9 ML OPHTHALMIC SOLUTION [PF] OU SCH ×4 (09:28→20:38)
[2021-04-24] MEDS: PANTOPRAZOLE SODIUM 40 MG DR TABLET PO SCH ×2 (09:29→20:39)
[2021-04-24] MEDS: MEROPENEM 1 GM in SODIUM CHLORIDE 0.9% 100 ML IV SCH (09:32)
[2021-04-24 10:54] VITALS: BP 136/69
[2021-04-24] MEDS: INSULIN GLARGINE,HUM.REC.ANLOG 100 UNITS/ML SQ SCH (11:23)
[2021-04-24] MEDS ORDERED: DEXTROSE 50%-WATER 25 GM/50 ML SYRINGE IVP ONE (11:30)
[2021-04-24] MEDS ORDERED: INSULIN REGULAR, HUMAN 100 UNITS/ML IVP ONE (11:30)
[2021-04-24] MEDS ORDERED: BISACODYL 10 MG RECTAL RECTAL SUPPOSITORY PR ONE (13:45)
[2021-04-24] MEDS: SODIUM ZIRCONIUM CYCLOSILICATE 5 GM POWDER PACKET PO SCH ×2 (16:23→20:38)
[2021-04-24 16:33] VITALS: BP 134/66
[2021-04-24] MEDS: INSULIN LISPRO 100 UNITS/ML SQ PRN (18:36)
[2021-04-24 19:14] VITALS: BP 153/76
[2021-04-24] MEDS: ATORVASTATIN CALCIUM 40 MG TABLET PO SCH (20:37)
[2021-04-24] MEDS: MELATONIN 5 MG TABLET PO SCH (20:37)
[2021-04-24] MEDS: TAMSULOSIN HCL 0.4 MG CAPSULE PO SCH (20:39)
[2021-04-24] MEDS ORDERED: DAPTOMYCIN 500 MG in SODIUM CHLORIDE 0.9% 50 ML IV SCH (21:00)
[2021-04-24 21:12] LABS: GLUCOMETER DEV NAME(LOC) 5S.1; GLUCOSE,POINT OF CARE 130 MG/DL (70-110)
[2021-04-24 21:13] LABS: GLUCOMETER DEV NAME(LOC) 5S.1; GLUCOSE,POINT OF CARE 128 MG/DL (70-110)
[2021-04-24 21:15] LABS: GLUCOMETER DEV NAME(LOC) 5N.1C; GLUCOSE,POINT OF CARE 149 MG/DL (70-110)
[2021-04-24 23:14] VITALS: BP 153/82
[2021-04-25 04:21] VITALS: BP 135/74
[2021-04-25 06:04] LABS: BASOPHILS % (AUTO) 1.5 % (0.0-2.0); HEMATOCRIT 29.4 % (41-53); HEMOGLOBIN 9.7 g/dL (13.5-17.5); LYMPHOCYTES # (AUTO) 1.1 K/uL (1.0-4.8); MEAN CORPUSCULAR HEMOGLOBIN 32.8 pg (26.0-34.0); MEAN CORPUSCULAR HGB CONC 32.8 G/dL (31.0-37.0); MEAN CORPUSCULAR VOLUME 100 fL (80-100); MONOCYTES # (AUTO) 0.6 K/uL (0.1-1.0); MONOCYTES % (AUTO) 13.9 % (2.0-9.0); NEUTROPHILS # (AUTO) 2.6 K/uL (1.8-7.7); NEUTROPHILS % (AUTO) 59.6 % (40.0-70.0); PLATELET COUNT (AUTO) 366 K/uL (150-450); RED BLOOD CELL COUNT(AUTO) 2.95 MIL/uL (4.50-5.90); RED CELL DISTRIBUTION WIDTH 19.1 % (11.5-14.5)
[2021-04-25 06:07] LABS: GLUCOMETER DEV NAME(LOC) 5S.1; GLUCOSE,POINT OF CARE 106 MG/DL (70-110)
[2021-04-25 06:24] LABS: ALBUMIN 2.5 g/dL (3.4-5.0); BILIRUBIN,TOTAL 0.3 mg/dL (0.1-1.0); CALCIUM, TOTAL 9.1 mg/dL (8.8-10.5); CREATININE 1.91 mg/dL (0.60-1.30); POTASSIUM 4.6 mmol/L (3.5-5.1); TOTAL PROTEIN, SERUM 7.8 g/dL (6.4-8.2)
[2021-04-25 07:48] VITALS: BP 138/76
[2021-04-25] MEDS: SUCRALFATE 1 GM/10 ML SUSPENSION UDCUP PO SCH ×4 (08:08→21:22)
[2021-04-25] MEDS: PANTOPRAZOLE SODIUM 40 MG DR TABLET PO SCH ×2 (08:08→21:25)
[2021-04-25] MEDS: TICAGRELOR 90 MG TABLET PO SCH ×2 (08:08→21:22)
[2021-04-25] MEDS: PredniSONE 5 MG TABLET PO SCH (08:09)
[2021-04-25] MEDS: METOPROLOL SUCCINATE 25 MG ER TABLET PO SCH (08:09)
[2021-04-25] MEDS: CHLORTHALIDONE 25 MG TABLET PO SCH (08:09)
[2021-04-25] MEDS: FOLIC ACID 1 MG TABLET PO SCH (08:10)
[2021-04-25] MEDS: NIFEdipine 60 MG ER TABLET PO SCH ×2 (08:10→21:23)
[2021-04-25] MEDS: SERTRALINE HCL 50 MG TABLET PO SCH (08:10)
[2021-04-25] MEDS: GABAPENTIN 300 MG CAPSULE PO SCH ×3 (08:10→21:21)
[2021-04-25] MEDS: MULTIVITAMINS, THERAPEUTIC TABLET PO SCH (08:11)
[2021-04-25] MEDS: CINACALCET HCL 30 MG TABLET PO SCH ×2 (08:11→17:28)
[2021-04-25] MEDS: SODIUM ZIRCONIUM CYCLOSILICATE 5 GM POWDER PACKET PO SCH (08:12)
[2021-04-25] MEDS: INSULIN GLARGINE,HUM.REC.ANLOG 100 UNITS/ML SQ SCH (08:13)
[2021-04-25] MEDS: NYSTATIN 500,000 UNITS/5 ML SUSPENSION UDCUP PO SCH ×4 (08:20→21:22)
[2021-04-25] MEDS: DEXTRAN 70 0.1%/HYPROMELL 0.3% 0.9 ML OPHTHALMIC SOLUTION [PF] OU SCH ×4 (08:20→21:27)
[2021-04-25] MEDS: INSULIN LISPRO 100 UNITS/ML SQ PRN ×2 (11:22→17:12)
[2021-04-25 12:19] LABS: GLUCOMETER DEV NAME(LOC) 5S.1; GLUCOSE,POINT OF CARE 142 MG/DL (70-110)
[2021-04-25 12:37] VITALS: BP 147/65
[2021-04-25 16:30] VITALS: BP 134/68
[2021-04-25 18:09] LABS: GLUCOMETER DEV NAME(LOC) 5S.1; GLUCOSE,POINT OF CARE 167 MG/DL (70-110)
[2021-04-25 19:29] VITALS: BP 130/72
[2021-04-25] MEDS: MELATONIN 5 MG TABLET PO SCH (21:21)
[2021-04-25] MEDS: ATORVASTATIN CALCIUM 40 MG TABLET PO SCH (21:22)
[2021-04-25] MEDS: TAMSULOSIN HCL 0.4 MG CAPSULE PO SCH (21:22)
[2021-04-25] MEDS: TACROLIMUS 1 MG CAPSULE PO SCH (21:23)
[2021-04-25 23:19] VITALS: BP 133/78
[2021-04-26 01:25] LABS: GLUCOMETER DEV NAME(LOC) 5N.1C; GLUCOSE,POINT OF CARE 119 MG/DL (70-110)
[2021-04-26 03:33] VITALS: BP 141/81
[2021-04-26] MEDS: DEXTRAN 70 0.1%/HYPROMELL 0.3% 0.9 ML OPHTHALMIC SOLUTION [PF] OU SCH ×4 (07:42→21:30)
[2021-04-26] MEDS: SODIUM ZIRCONIUM CYCLOSILICATE 5 GM POWDER PACKET PO SCH (07:42)
[2021-04-26] MEDS: TACROLIMUS 1 MG CAPSULE PO SCH ×2 (07:43→21:25)
[2021-04-26] MEDS: SUCRALFATE 1 GM/10 ML SUSPENSION UDCUP PO SCH ×4 (07:43→21:25)
[2021-04-26] MEDS: NIFEdipine 60 MG ER TABLET PO SCH ×2 (07:43→21:24)
[2021-04-26] MEDS: NYSTATIN 500,000 UNITS/5 ML SUSPENSION UDCUP PO SCH ×4 (07:43→21:25)
[2021-04-26] MEDS: CINACALCET HCL 30 MG TABLET PO SCH ×2 (07:43→18:24)
[2021-04-26] MEDS: PANTOPRAZOLE SODIUM 40 MG DR TABLET PO SCH ×2 (07:44→21:30)
[2021-04-26] MEDS: SERTRALINE HCL 50 MG TABLET PO SCH (07:44)
[2021-04-26] MEDS: FOLIC ACID 1 MG TABLET PO SCH (07:44)
[2021-04-26] MEDS: CHLORTHALIDONE 25 MG TABLET PO SCH (07:44)
[2021-04-26] MEDS: TICAGRELOR 90 MG TABLET PO SCH ×2 (07:44→21:24)
[2021-04-26] MEDS: PredniSONE 5 MG TABLET PO SCH (07:44)
[2021-04-26] MEDS: GABAPENTIN 300 MG CAPSULE PO SCH ×3 (07:44→21:24)
[2021-04-26] MEDS: METOPROLOL SUCCINATE 25 MG ER TABLET PO SCH (07:44)
[2021-04-26] MEDS: MULTIVITAMINS, THERAPEUTIC TABLET PO SCH (07:44)
[2021-04-26] MEDS: INSULIN GLARGINE,HUM.REC.ANLOG 100 UNITS/ML SQ SCH (07:46)
[2021-04-26 08:58] LABS: CALCIUM, TOTAL 9.4 mg/dL (8.8-10.5); CREATININE 1.79 mg/dL (0.60-1.30); POTASSIUM 4.9 mmol/L (3.5-5.1)
[2021-04-26 09:29] VITALS: BP 132/73
[2021-04-26] MEDS: INSULIN LISPRO 100 UNITS/ML SQ PRN ×2 (11:06→21:27)
[2021-04-26 12:19] VITALS: BP 158/76
[2021-04-26 16:55] VITALS: BP 146/87
[2021-04-26 18:27] LABS: GLUCOMETER DEV NAME(LOC) 5N.1C; GLUCOSE,POINT OF CARE 145 MG/DL (70-110)
[2021-04-26 18:27] LABS: GLUCOMETER DEV NAME(LOC) 5N.1C; GLUCOSE,POINT OF CARE 114 MG/DL (70-110)
[2021-04-26 20:12] VITALS: BP 150/79
[2021-04-26 20:44] LABS: GLUCOMETER DEV NAME(LOC) 5S.1; GLUCOSE,POINT OF CARE 199 MG/DL (70-110)
[2021-04-26 20:45] LABS: GLUCOMETER DEV NAME(LOC) 5S.1; GLUCOSE,POINT OF CARE 177 MG/DL (70-110)
[2021-04-26] MEDS: ATORVASTATIN CALCIUM 40 MG TABLET PO SCH (21:24)
[2021-04-26] MEDS: MELATONIN 5 MG TABLET PO SCH (21:24)
[2021-04-26] MEDS: TAMSULOSIN HCL 0.4 MG CAPSULE PO SCH (21:24)
[2021-04-26 23:26] VITALS: BP 139/74
[2021-04-27] VITALS (8 sets, daily range): BP systolic 129–163; BP diastolic 63–92
[2021-04-27 06:44] LABS: BASOPHILS % (AUTO) 1.3 % (0.0-2.0); EOSINOPHILS % (AUTO) 1.8 % (1.0-6.0); HEMATOCRIT 29.4 % (41-53); HEMOGLOBIN 9.9 g/dL (13.5-17.5); LYMPHOCYTES # (AUTO) 1.3 K/uL (1.0-4.8); LYMPHOCYTES % (AUTO) 28.5 % (22.0-44.0); MEAN CORPUSCULAR HEMOGLOBIN 35.4 pg (26.0-34.0); MEAN CORPUSCULAR HGB CONC 33.8 G/dL (31.0-37.0); MEAN CORPUSCULAR VOLUME 105 fL (80-100); MONOCYTES # (AUTO) 0.8 K/uL (0.1-1.0); MONOCYTES % (AUTO) 16.7 % (2.0-9.0); NEUTROPHILS # (AUTO) 2.3 K/uL (1.8-7.7); NEUTROPHILS % (AUTO) 51.7 % (40.0-70.0); PLATELET COUNT (AUTO) 339 K/uL (150-450); RED BLOOD CELL COUNT(AUTO) 2.81 MIL/uL (4.50-5.90); RED CELL DISTRIBUTION WIDTH 18.7 % (11.5-14.5)
[2021-04-27 07:33] LABS: CREATININE 1.65 mg/dL (0.60-1.30); POTASSIUM 5.1 mmol/L (3.5-5.1)
[2021-04-27] MEDS: CINACALCET HCL 30 MG TABLET PO SCH ×2 (08:09→18:33)
[2021-04-27] MEDS: PredniSONE 5 MG TABLET PO SCH (08:10)
[2021-04-27] MEDS: FOLIC ACID 1 MG TABLET PO SCH (08:10)
[2021-04-27] MEDS: TICAGRELOR 90 MG TABLET PO SCH ×2 (08:10→21:32)
[2021-04-27] MEDS: GABAPENTIN 300 MG CAPSULE PO SCH ×3 (08:12→21:34)
[2021-04-27] MEDS: CHLORTHALIDONE 25 MG TABLET PO SCH (08:12)
[2021-04-27] MEDS: NIFEdipine 60 MG ER TABLET PO SCH ×2 (08:13→21:32)
[2021-04-27] MEDS: TACROLIMUS 1 MG CAPSULE PO SCH ×2 (08:14→21:33)
[2021-04-27] MEDS: METOPROLOL SUCCINATE 25 MG ER TABLET PO SCH (08:15)
[2021-04-27] MEDS: SERTRALINE HCL 50 MG TABLET PO SCH (08:15)
[2021-04-27] MEDS: MULTIVITAMINS, THERAPEUTIC TABLET PO SCH (08:15)
[2021-04-27] MEDS: PANTOPRAZOLE SODIUM 40 MG DR TABLET PO SCH ×2 (08:16→21:34)
[2021-04-27] MEDS: SUCRALFATE 1 GM/10 ML SUSPENSION UDCUP PO SCH ×4 (08:17→21:33)
[2021-04-27] MEDS: NYSTATIN 500,000 UNITS/5 ML SUSPENSION UDCUP PO SCH ×4 (08:18→21:32)
[2021-04-27] MEDS: SODIUM ZIRCONIUM CYCLOSILICATE 5 GM POWDER PACKET PO SCH (08:28)
[2021-04-27] MEDS: INSULIN GLARGINE,HUM.REC.ANLOG 100 UNITS/ML SQ SCH (08:33)
[2021-04-27] MEDS: DEXTRAN 70 0.1%/HYPROMELL 0.3% 0.9 ML OPHTHALMIC SOLUTION [PF] OU SCH ×4 (10:56→21:33)
[2021-04-27] MEDS: INSULIN LISPRO 100 UNITS/ML SQ PRN ×2 (11:24→17:35)
[2021-04-27 12:50] LABS: GLUCOMETER DEV NAME(LOC) 5N.1C; GLUCOSE,POINT OF CARE 132 MG/DL (70-110)
[2021-04-27 12:50] LABS: GLUCOMETER DEV NAME(LOC) 5N.1C; GLUCOSE,POINT OF CARE 159 MG/DL (70-110)
[2021-04-27] MEDS: MELATONIN 5 MG TABLET PO SCH (21:34)
[2021-04-27] MEDS: TAMSULOSIN HCL 0.4 MG CAPSULE PO SCH (21:34)
[2021-04-27] MEDS: ATORVASTATIN CALCIUM 40 MG TABLET PO SCH (21:34)
[2021-04-28 04:36] VITALS: BP 116/58
[2021-04-28 07:20] LABS: CALCIUM, TOTAL 8.8 mg/dL (8.8-10.5); CREATININE 1.66 mg/dL (0.60-1.30); MAGNESIUM 1.8 mg/dL (1.80-2.40); PHOSPHORUS 3.2 mg/dL (2.5-4.9); POTASSIUM 4.3 mmol/L (3.5-5.1)
[2021-04-28 07:30] VITALS: BP 138/62
[2021-04-28] MEDS: MULTIVITAMINS, THERAPEUTIC TABLET PO SCH (08:30)
[2021-04-28] MEDS: METOPROLOL SUCCINATE 25 MG ER TABLET PO SCH (08:30)
[2021-04-28] MEDS: FOLIC ACID 1 MG TABLET PO SCH (08:30)
[2021-04-28] MEDS: GABAPENTIN 300 MG CAPSULE PO SCH ×3 (08:30→20:44)
[2021-04-28] MEDS: PANTOPRAZOLE SODIUM 40 MG DR TABLET PO SCH (08:30)
[2021-04-28] MEDS: SUCRALFATE 1 GM/10 ML SUSPENSION UDCUP PO SCH ×4 (08:31→20:44)
[2021-04-28] MEDS: DEXTRAN 70 0.1%/HYPROMELL 0.3% 0.9 ML OPHTHALMIC SOLUTION [PF] OU SCH ×4 (08:32→20:44)
[2021-04-28] MEDS: NYSTATIN 500,000 UNITS/5 ML SUSPENSION UDCUP PO SCH ×4 (08:32→20:44)
[2021-04-28] MEDS: SODIUM ZIRCONIUM CYCLOSILICATE 5 GM POWDER PACKET PO SCH (08:33)
[2021-04-28] MEDS: PredniSONE 5 MG TABLET PO SCH (08:33)
[2021-04-28] MEDS: NIFEdipine 60 MG ER TABLET PO SCH ×2 (08:33→20:44)
[2021-04-28] MEDS: CINACALCET HCL 30 MG TABLET PO SCH ×2 (08:33→17:04)
[2021-04-28] MEDS: SERTRALINE HCL 50 MG TABLET PO SCH (08:34)
[2021-04-28] MEDS: CHLORTHALIDONE 25 MG TABLET PO SCH (08:34)
[2021-04-28] MEDS: INSULIN GLARGINE,HUM.REC.ANLOG 100 UNITS/ML SQ SCH (09:48)
[2021-04-28] MEDS: TICAGRELOR 90 MG TABLET PO SCH ×2 (09:51→20:44)
[2021-04-28] MEDS: TACROLIMUS 1 MG CAPSULE PO SCH (09:54)
[2021-04-28] MEDS: INSULIN LISPRO 100 UNITS/ML SQ PRN ×2 (12:46→21:00)
[2021-04-28 13:05] VITALS: BP 124/67
[2021-04-28 15:30] VITALS: BP 114/68
[2021-04-28 19:27] VITALS: BP 131/69
[2021-04-28 20:25] LABS: GLUCOMETER DEV NAME(LOC) 5N.3; GLUCOSE,POINT OF CARE 145 MG/DL (70-110)
[2021-04-28 20:25] LABS: GLUCOMETER DEV NAME(LOC) 5N.3; GLUCOSE,POINT OF CARE 133 MG/DL (70-110)
[2021-04-28] MEDS: TAMSULOSIN HCL 0.4 MG CAPSULE PO SCH (20:44)
[2021-04-28] MEDS: ATORVASTATIN CALCIUM 40 MG TABLET PO SCH (20:44)
[2021-04-28] MEDS: MELATONIN 5 MG TABLET PO SCH (20:44)
[2021-04-28] MEDS: TACROLIMUS 5 MG CAPSULE PO SCH (20:45)
[2021-04-28 23:54] VITALS: BP 121/73
[2021-04-28] MEDS: LORazepam 2 MG/ML VIAL IVP PRN (23:54)
[2021-04-29 02:19] LABS: GLUCOMETER DEV NAME(LOC) 5S.1; GLUCOSE,POINT OF CARE 134 MG/DL (70-110)
[2021-04-29 02:19] LABS: GLUCOMETER DEV NAME(LOC) 5S.1; GLUCOSE,POINT OF CARE 174 MG/DL (70-110)
[2021-04-29 04:15] VITALS: BP 137/57
[2021-04-29] MEDS: PANTOPRAZOLE SODIUM 40 MG DR TABLET PO SCH (08:51)
[2021-04-29] MEDS: TICAGRELOR 90 MG TABLET PO SCH ×2 (08:51→20:48)
[2021-04-29] MEDS: FOLIC ACID 1 MG TABLET PO SCH (08:52)
[2021-04-29] MEDS: DEXTRAN 70 0.1%/HYPROMELL 0.3% 0.9 ML OPHTHALMIC SOLUTION [PF] OU SCH ×4 (08:53→20:47)
[2021-04-29] MEDS: GABAPENTIN 300 MG CAPSULE PO SCH ×3 (08:53→20:48)
[2021-04-29] MEDS: MULTIVITAMINS, THERAPEUTIC TABLET PO SCH (08:53)
[2021-04-29] MEDS: METOPROLOL SUCCINATE 25 MG ER TABLET PO SCH (08:53)
[2021-04-29] MEDS: NYSTATIN 500,000 UNITS/5 ML SUSPENSION UDCUP PO SCH ×4 (08:55→20:48)
[2021-04-29] MEDS: SUCRALFATE 1 GM/10 ML SUSPENSION UDCUP PO SCH ×4 (08:55→20:47)
[2021-04-29] MEDS: CINACALCET HCL 30 MG TABLET PO SCH ×2 (08:55→17:52)
[2021-04-29] MEDS: NIFEdipine 60 MG ER TABLET PO SCH ×2 (08:55→20:48)
[2021-04-29] MEDS: TACROLIMUS 5 MG CAPSULE PO SCH ×2 (08:56→20:48)
[2021-04-29] MEDS: PredniSONE 5 MG TABLET PO SCH (08:56)
[2021-04-29] MEDS: SERTRALINE HCL 50 MG TABLET PO SCH (08:57)
[2021-04-29 08:59] VITALS: BP 138/75
[2021-04-29 09:01] LABS: BASOPHILS % (AUTO) 1.5 % (0.0-2.0); EOSINOPHILS % (AUTO) 0.9 % (1.0-6.0); HEMATOCRIT 28.5 % (41-53); HEMOGLOBIN 9.5 g/dL (13.5-17.5); LYMPHOCYTES # (AUTO) 1.6 K/uL (1.0-4.8); LYMPHOCYTES % (AUTO) 32.5 % (22.0-44.0); MEAN CORPUSCULAR HEMOGLOBIN 33.7 pg (26.0-34.0); MEAN CORPUSCULAR HGB CONC 33.2 G/dL (31.0-37.0); MEAN CORPUSCULAR VOLUME 102 fL (80-100); MONOCYTES # (AUTO) 0.7 K/uL (0.1-1.0); MONOCYTES % (AUTO) 13.6 % (2.0-9.0); NEUTROPHILS # (AUTO) 2.5 K/uL (1.8-7.7); NEUTROPHILS % (AUTO) 51.5 % (40.0-70.0); PLATELET COUNT (AUTO) 293 K/uL (150-450); RED BLOOD CELL COUNT(AUTO) 2.81 MIL/uL (4.50-5.90); RED CELL DISTRIBUTION WIDTH 18.6 % (11.5-14.5)
[2021-04-29 09:06] LABS: CREATININE 1.67 mg/dL (0.60-1.30); MAGNESIUM 1.7 mg/dL (1.80-2.40); POTASSIUM 4.6 mmol/L (3.5-5.1)
[2021-04-29] MEDS: INSULIN GLARGINE,HUM.REC.ANLOG 100 UNITS/ML SQ SCH (09:10)
[2021-04-29 11:27] VITALS: BP 140/74
[2021-04-29] MEDS: INSULIN LISPRO 100 UNITS/ML SQ PRN ×3 (12:08→20:51)
[2021-04-29] MEDS: MAGNESIUM CHLORIDE 64 MG ER TABLET PO SCH (12:11)
[2021-04-29 15:34] VITALS: BP 116/60
[2021-04-29 17:44] LABS: GLUCOMETER DEV NAME(LOC) 5S.1; GLUCOSE,POINT OF CARE 217 MG/DL (70-110)
[2021-04-29 17:44] LABS: GLUCOMETER DEV NAME(LOC) 5S.1; GLUCOSE,POINT OF CARE 136 MG/DL (70-110)
[2021-04-29 20:01] VITALS: BP 126/67
[2021-04-29] MEDS: TAMSULOSIN HCL 0.4 MG CAPSULE PO SCH (20:48)
[2021-04-29] MEDS: MELATONIN 5 MG TABLET PO SCH (20:48)
[2021-04-29] MEDS: ATORVASTATIN CALCIUM 40 MG TABLET PO SCH (20:48)
[2021-04-30 00:02] VITALS: BP 129/66
[2021-04-30 05:24] VITALS: BP 128/75
[2021-04-30 05:28] LABS: GLUCOMETER DEV NAME(LOC) 5N.1C; GLUCOSE,POINT OF CARE 216 MG/DL (70-110)
[2021-04-30 05:28] LABS: GLUCOMETER DEV NAME(LOC) 5N.1C; GLUCOSE,POINT OF CARE 114 MG/DL (70-110)
[2021-04-30 08:00] VITALS: BP 131/66
[2021-04-30] MEDS: CINACALCET HCL 30 MG TABLET PO SCH (08:59)
[2021-04-30] MEDS: SUCRALFATE 1 GM/10 ML SUSPENSION UDCUP PO SCH ×3 (08:59→17:00)
[2021-04-30] MEDS: TACROLIMUS 5 MG CAPSULE PO SCH (08:59)
[2021-04-30] MEDS: FOLIC ACID 1 MG TABLET PO SCH (09:00)
[2021-04-30] MEDS: PredniSONE 5 MG TABLET PO SCH (09:00)
[2021-04-30] MEDS: METOPROLOL SUCCINATE 25 MG ER TABLET PO SCH (09:00)
[2021-04-30] MEDS: TICAGRELOR 90 MG TABLET PO SCH (09:00)
[2021-04-30] MEDS: GABAPENTIN 300 MG CAPSULE PO SCH (09:01)
[2021-04-30] MEDS: NIFEdipine 60 MG ER TABLET PO SCH (09:01)
[2021-04-30] MEDS: SERTRALINE HCL 50 MG TABLET PO SCH (09:01)
[2021-04-30] MEDS: PANTOPRAZOLE SODIUM 40 MG DR TABLET PO SCH (09:01)
[2021-04-30] MEDS: MAGNESIUM CHLORIDE 64 MG ER TABLET PO SCH (09:02)
[2021-04-30] MEDS: MULTIVITAMINS, THERAPEUTIC TABLET PO SCH (09:02)
[2021-04-30] MEDS: DEXTRAN 70 0.1%/HYPROMELL 0.3% 0.9 ML OPHTHALMIC SOLUTION [PF] OU SCH ×3 (09:04→17:00)
[2021-04-30] MEDS: NYSTATIN 500,000 UNITS/5 ML SUSPENSION UDCUP PO SCH ×3 (09:06→17:00)
[2021-04-30] MEDS: INSULIN GLARGINE,HUM.REC.ANLOG 100 UNITS/ML SQ SCH (09:11)
[2021-04-30 09:34] LABS: CALCIUM, TOTAL 8.8 mg/dL (8.8-10.5); CREATININE 1.75 mg/dL (0.60-1.30); MAGNESIUM 1.8 mg/dL (1.80-2.40)
[2021-04-30 11:20] VITALS: BP 129/69
[2021-04-30] MEDS: MORPHINE SULFATE 2 MG/ML SYRINGE IVP PRN (12:26)
[2021-04-30 13:07] LABS: COVID AG,FIA SOURCE NASAL SWAB
[2021-04-30 16:04] VITALS: BP 133/64
[2021-04-30] MEDS ORDERED: SODIUM ZIRCONIUM CYCLOSILICATE 5 GM POWDER PACKET PO SCH (17:00)
[2021-04-30 21:41] LABS: GLUCOMETER DEV NAME(LOC) 5N.3; GLUCOSE,POINT OF CARE 153 MG/DL (70-110)
[2021-04-30 21:41] LABS: GLUCOMETER DEV NAME(LOC) 5N.3; GLUCOSE,POINT OF CARE 109 MG/DL (70-110)
[2021-04-30 21:41] LABS: GLUCOMETER DEV NAME(LOC) 5N.3; GLUCOSE,POINT OF CARE 189 MG/DL (70-110)
[2021-04-30 21:41] LABS: GLUCOMETER DEV NAME(LOC) 5N.3; GLUCOSE,POINT OF CARE 212 MG/DL (70-110)
== END 2021-04-30 15:50 | disposition short-term general hospital (02) | DRG 64 ==
LOC: EMS 13:28 → 5S 16:25
PROVIDERS: ADMIT Hospitalist; ATTEND Hospitalist
DX: I63.9 Cerebral infarction, unspecified (principal); E43 Unspecified severe protein-calorie malnutrition; N18.6 End stage renal disease; I12.0 Hypertensive chronic kidney disease with stage 5 chronic kidney disease or end stage renal disease; I42.9 Cardiomyopathy, unspecified; M86.9 Osteomyelitis, unspecified; Z94.0 Kidney transplant status; G81.94 Hemiplegia, unspecified affecting left nondominant side; R29.706 NIHSS score 6; R29.810 Facial weakness; E11.22 Type 2 diabetes mellitus with diabetic chronic kidney disease; D64.9 Anemia, unspecified; E11.51 Type 2 diabetes mellitus with diabetic peripheral angiopathy without gangrene; E11.69 Type 2 diabetes mellitus with other specified complication; E87.5 Hyperkalemia; Z20.822 Contact with and (suspected) exposure to COVID-19; T45.1X5A Adverse effect of antineoplastic and immunosuppressive drugs, initial encounter; Z87.440 Personal history of urinary (tract) infections; Z79.02 Long term (current) use of antithrombotics/antiplatelets; Z79.4 Long term (current) use of insulin; Z79.899 Other long term (current) drug therapy; Z86.718 Personal history of other venous thrombosis and embolism; Z89.512 Acquired absence of left leg below knee; Z89.511 Acquired absence of right leg below knee; Z68.21 Body mass index [BMI] 21.0-21.9, adult; Z88.8 Allergy status to other drugs, medicaments and biological substances; Y92.89 Other specified places as the place of occurrence of the external cause; R27.0 Ataxia, unspecified
CPT/HCPCS: 70496; 70551; 71045; 73718; 76776; 80048; 80053; 80061; 80197; 81001; 82962; 83735; 83880; 84100; 84132; 84443; 84484; 85025; 85610; 85730; 86850; 86900; 86901; 87040; 87081; 92526; 92610; 93005; 93306; 97162; 97167; 97535; 99291; G0480; J0692; J0878; J1644; J1815; J2060; J2185; J2270; J3370; J7050; J7060; J7507; Q9967; 36415-L1; 36415-TC; 70450; 70450-TC; J7613; U0003